=== PATIENT | male | born 1965 | race Caucasian/White ===

== ENCOUNTER → 2025-02-03 08:43 | Outpatient (REF) | payer OTHER, SELFPAY | LOC: EMG 08:43 | PROVIDERS: ATTENDING PHYSICIAN Physician Assistant | DX: M54.12 Radiculopathy, cervical region (principal); M50.30 Other cervical disc degeneration, unspecified cervical region; R20.2 Paresthesia of skin | CPT/HCPCS: 95886; 95911 ==

== ENCOUNTER → 2025-02-14 09:13 | Outpatient (REF) | payer OTHER, SELFPAY | LOC: PAVMRI 09:13 | PROVIDERS: ATTENDING PHYSICIAN Physician Assistant | DX: M54.16 Radiculopathy, lumbar region (principal) | CPT/HCPCS: 72148 ==